=== PATIENT | male | born 1970 | race Caucasian/White ===

== ENCOUNTER 2017-03-31 16:07 | Emergency (ER) | payer SELFPAY ==
[~2017-03-31] VITALS: Ht 175.3 cm; Wt 108.9 kg
[~2017-03-31 16:07] MED LIST: NORPTMEDS CO
[2017-03-31 16:38] VITALS: BP 142/95
== END 2017-03-31 23:31 | disposition left against medical advice (07) ==
LOC: ER 16:07
DX: M79.605 Pain in left leg (principal); Z53.21 Procedure and treatment not carried out due to patient leaving prior to being seen by health care provider

== ENCOUNTER 2017-04-05 15:54 | Emergency (ER) | payer SELFPAY ==
[~2017-04-05] VITALS: Ht 170.2 cm; Wt 113.4 kg
[2017-04-05 16:46] LABS: Basophils # (auto) 0.1 uL; Basophils % (auto) 0.9 % (0.0-2.0); CONDITION Y; Eosinophils # (auto) 0.2 uL; Eosinophils % (auto) 1.7 % (0.0-7.0); Hematocrit 43.3 % (41.0-53.0); Hemoglobin 14.9 g/dL (13.5-17.5); Lymphocytes # (auto) 2.3 uL; Mean Corpuscular Hemoglobin 28.8 pg (28.0-32.0); Mean Corpuscular Hgb Conc. 34.3 g/dL (32.0-36.0); Mean Corpuscular Volume 83.9 fL (80.0-100.0); Monocytes # (auto) 0.7 uL; Monocytes % (auto) 6.1 % (0.0-12.0); Neutrophils # (auto) 7.7 uL; Neutrophils % (auto) 70.3 % (37.0-80.0); Platelet Count (auto) 362 10^3/uL (140-450); Red Cell Distribution Width 13.4 % (11.6-16.0)
[2017-04-05 17:22] LABS: Albumin 3.9 g/dL (3.4-5.0); Alkaline Phosphatase 90 U/L (45-117); Anion Gap 8 (5-15); Aspartate Aminotransferase 21 U/L (15-37); BUN/Creatinine Ratio 15.5; Bilirubin, Total 0.5 mg/dL (0.2-1.0); Blood Urea Nitrogen 17 mg/dL (7-18); Calcium 9.5 mg/dL (8.5-10.1); Carbon Dioxide 23 mmol/L (21-32); Chloride 107 mmol/L (98-107); GFR African American 92 mL/min; GFR Non-African American 76 mL/min; Glucose 118 mg/dL (74-106); Magnesium 2.7 mg/dL (1.6-2.6); Potassium 3.6 mmol/L (3.5-5.1); Sodium 138 mmol/L (136-145); Total Protein 7.9 g/dL (6.4-8.2)
[2017-04-05 19:40] VITALS: BP 137/89
[2017-04-05 19:57] LABS: Urine RBC None Seen /hpf (0 - 3)
[2017-04-05 20:20] LABS: Urine Bilirubin Negative (Negative); Urine Blood Negative /uL (Negative); Urine Color Yellow (Yellow); Urine Glucose Normal (Normal); Urine Ketone Negative (Negative); Urine Mucus FEW (None Seen); Urine Nitrite Negative (Negative); Urine Squamous Epithelial Cell FEW /hpf (<5); Urine Urobilinogen Normal (Negative); Urine pH 5.5 (5.0-8.0)
== END 2017-04-05 20:00 | disposition left against medical advice (07) ==
LOC: ER 16:02
DX: R06.02 Shortness of breath (principal); R51 Headache; R11.0 Nausea; Z53.21 Procedure and treatment not carried out due to patient leaving prior to being seen by health care provider
CPT/HCPCS: 36415; 70450; 71010; 80053; 80307; 81001; 83735; 84484; 85025; 93005

== ENCOUNTER 2023-10-18 15:44 | Inpatient (IN) | payer MEDICAID ==
[~2023-10-18] VITALS: Ht 175.3 cm; Wt 110.0 kg
[2023-10-18 16:40] LABS: Basophils # (auto) 0.1 10 ^3/uL (0-0.2); Basophils % (auto) 0.8 % (0.0-2.0); Eosinophils # (auto) 0.2 10 ^3/uL (0-0.8); Hemoglobin 15.2 g/dL (13.5-17.5); Lymphocytes # (auto) 1.9 10 ^3/uL (0.4-5.4); Lymphocytes % (auto) 22.6 % (10.0-50.0); Mean Corpuscular Hemoglobin 28.6 pg (28.0-32.0); Mean Corpuscular Hgb Conc. 33.7 g/dL (32.0-36.0); Mean Corpuscular Volume 84.8 fL (80.0-100.0); Monocytes # (auto) 0.4 10 ^3/uL (0-1.3); Monocytes % (auto) 4.7 % (0.0-12.0); Neutrophils % (auto) 69.9 % (37.0-80.0); Nucleated Red Blood Cells % 0.1 %; Red Blood Cells 5.31 10^6/uL (4.5-5.90); Red Cell Distribution Width 13.1 % (11.8-14.3); White Blood Cell 8.5 10^3/uL (4.4-10.8)
[2023-10-18 16:56] LABS: Alanine Aminotransferase 35 U/L (7-40); Albumin 4.2 g/dL (3.2-4.8); Alkaline Phosphatase 89 U/L (46-116); Anion Gap 7 (5-15); Aspartate Aminotransferase 23 U/L (13-40); BUN/Creatinine Ratio 10.1 (10.0-20.0); Bilirubin, Total 0.6 mg/dL (0.2-1.0); Blood Urea Nitrogen 12 mg/dL (9-23); Calcium 9.2 mg/dL (8.7-10.4); Carbon Dioxide 30 mmol/L (20-30); Chloride 102 mmol/L (98-107); Glucose 138 mg/dL (74-106); Potassium 4.3 mmol/L (3.5-5.1); Sodium 139 mmol/L (136-145); Total Protein 6.9 g/dL (5.7-8.2)
[2023-10-18 17:02] LABS: INR 1.05 (0.9-1.15); Partial Thromboplastin Time 26.9 SEC (24.5-34.5)
[2023-10-18 17:10] LABS: Blood Alcohol < 3.0 mg/dL (<10)
[2023-10-18] MEDS ORDERED: NITROGLYCERIN 0.4 MG SL TAB SL PRN (19:00)
[2023-10-18] MEDS ORDERED: MORPHINE SULFATE INJ 2 MG/ml SYRG IV PRN (19:00)
[2023-10-18] MEDS ORDERED: ONDANSETRON HCL 4 MG/2 ML VIAL IV PRN (19:00)
[2023-10-18] MEDS ORDERED: ACETAMINOPHEN 325 MG TAB PO PRN (19:00)
[2023-10-18] MEDS ORDERED: DOCUSATE SOD 100 MG CAP PO PRN (19:00)
[2023-10-18] MEDS ORDERED: ALBUTEROL SULF 2.5 MG/0.5ML(0.5%) NEB SOLN NEB PRN (19:15)
[2023-10-18] MEDS ORDERED: IPRATROPIUM BROM 0.5 MG/2.5ML INH SOL NEB PRN (19:15)
[2023-10-18] MEDS: FOLIC ACID 1 MG TAB PO ONE (20:14)
[2023-10-18] MEDS: THIAMINE HCL 100 MG TAB PO ONE (20:14)
[2023-10-18] MEDS: MULTIPLE VITAMIN TAB PO ONE (20:14)
[2023-10-18] MEDS: SODIUM CHLORIDE 0.9% 1,000 ML IV ONE (20:15)
[2023-10-18 22:20] VITALS: BP 123/76; PULSE 103; RESP 16; TEMP 98.7; O2SAT 98
[2023-10-19 00:20] VITALS: PULSE 87; RESP 18; O2SAT 96
[2023-10-19 05:07] LABS: Basophils # (auto) 0.1 10 ^3/uL (0-0.2); Basophils % (auto) 0.7 % (0.0-2.0); Eosinophils # (auto) 0.3 10 ^3/uL (0-0.8); Eosinophils % (auto) 2.7 % (0.0-7.0); Hematocrit 44.1 % (41.0-53.0); Hemoglobin 14.9 g/dL (13.5-17.5); Lymphocytes % (auto) 30.7 % (10.0-50.0); Mean Corpuscular Hemoglobin 28.7 pg (28.0-32.0); Mean Corpuscular Hgb Conc. 33.7 g/dL (32.0-36.0); Mean Corpuscular Volume 85.1 fL (80.0-100.0); Monocytes # (auto) 0.8 10 ^3/uL (0-1.3); Monocytes % (auto) 8.1 % (0.0-12.0); Neutrophils # (auto) 5.7 10 ^3/uL (1.6-8.6); Neutrophils % (auto) 57.8 % (37.0-80.0); Red Blood Cells 5.19 10^6/uL (4.5-5.90); Red Cell Distribution Width 13.2 % (11.8-14.3); White Blood Cell 9.8 10^3/uL (4.4-10.8)
[2023-10-19 05:38] LABS: Alanine Aminotransferase 29 U/L (7-40); Alkaline Phosphatase 80 U/L (46-116); Anion Gap 7 (5-15); Aspartate Aminotransferase 17 U/L (13-40); BUN/Creatinine Ratio 9.2 (10.0-20.0); Blood Urea Nitrogen 10 mg/dL (9-23); Carbon Dioxide 29 mmol/L (20-30); Chloride 104 mmol/L (98-107); Glucose 105 mg/dL (74-106); Potassium 3.7 mmol/L (3.5-5.1); Sodium 140 mmol/L (136-145)
[2023-10-19 05:39] LABS: Bilirubin, Total 0.5 mg/dL (0.2-1.0); Total Protein 6.7 g/dL (5.7-8.2)
[2023-10-19 05:43] LABS: Amphetamine Screen, Urine Pos (NEGATIVE); Benzodiazephine Screen, Urine Neg (NEGATIVE)
[2023-10-19 05:44] LABS: Barbiturate Scree,Urine Neg (NEGATIVE); Cannabinoid Screen, Urine Pos (NEGATIVE); Cocaine Screen, Urine Neg (NEGATIVE); Opiate Scree,Urine Neg (NEGATIVE); Phencyclidine Screen, Urine Neg (NEGATIVE)
[2023-10-19 05:51] LABS: Urine Bacteria NONE SEEN /hpf (None Seen); Urine Blood Negative /uL (Negative); Urine Clarity Clear (Clear); Urine Color Yellow (Yellow); Urine Mucus FEW (None Seen); Urine Protein, UAD TRACE (Negative); Urine Specific Gravity 1.028 (1.001-1.035); Urine Urobilinogen Normal (Negative); Urine WBC 1 /hpf (0 - 3); Urine pH 5.5 (5.0-8.0)
[2023-10-19 05:56] LABS: Triglycerides 74 mg/dL (< 150)
[2023-10-19 05:57] LABS: LDL Cholesterol 81 mg/dL (< 100)
[2023-10-19 05:58] LABS: Cholesterol 144 mg/dL (< 200); HDL Cholesterol 52 mg/dL (40-59)
[2023-10-19 06:07] VITALS: O2SAT 94
[2023-10-19 07:38] VITALS: PULSE 66; RESP 18; O2SAT 95
[2023-10-19] MEDS: MULTIPLE VITAMIN TAB PO SCH (10:29)
[2023-10-19] MEDS: THIAMINE HCL 100 MG TAB PO SCH (10:29)
[2023-10-19] MEDS: FOLIC ACID 1 MG TAB PO SCH (10:29)
[2023-10-19 12:57] VITALS: BP 129/84; PULSE 67; RESP 19; TEMP 97.2; O2SAT 95
== END 2023-10-19 13:10 | disposition home or self-care (01) | DRG 204 ==
LOC: ER 15:44 → TELE-CENTR 19:06 → TELE 19:06 → TELE-CENTR 10-19 12:16
PROVIDERS: ADMIT Internal Medicine Pulmonary Disease; ATTEND Internal Medicine Pulmonary Disease
DX: R55 Syncope and collapse (principal); E66.01 Morbid (severe) obesity due to excess calories; F10.129 Alcohol abuse with intoxication, unspecified; F12.10 Cannabis abuse, uncomplicated; F15.10 Other stimulant abuse, uncomplicated; Z68.35 Body mass index [BMI] 35.0-35.9, adult; Z71.3 Dietary counseling and surveillance
CPT/HCPCS: 36415; 70450; 71045; 80053; 80061; 80307; 80320; 81001; 82962; 83036; 83605; 84443; 84484; 85025; 85379; 85610; 85730; 87040; 93005; 93306; G0378

== ENCOUNTER 2024-11-23 17:39 | Inpatient (IN) | payer MEDICAID, OTHER ==
[~2024-11-23] VITALS: Ht 172.7 cm; Wt 110.9 kg
--- NOTE | 2024-11-23 18:03 | ED.PDOC ---
GI ASSESSMENT HPI Comments 54 y/o M, presents to the ED for CC of abdominal pain. Patient states, that he has been experiencing RUQ abdominal pain that radiates to his back since last night (11/22/24). Patient comments ne onset symptoms of chills which began today (11/23/24). Patient complains of current 6/10 pain. Patient denies tobacco usage, drinks ETOH, and does illicit street drugs. Patient denies dysuria, hematuria, penile discharge, or N/V/D. No other symptoms or modifying factors at this time. Chief Complaint: Abdominal Pain Time Seen by MD: 17:50 Primary Care Provider: NONE Reviewed Notes: Nurses Notes, Medications, Allergies Allergies: Coded Allergies: NO KNOWN ALLERGIES (Unverified , 07/21/13) Home Meds No Active Prescriptions or Reported Meds Information Source: Patient Mode of Arrival: Ambulatory Timing: Days Duration: Since onset Prehospital treatment: None Quality: None Vomitus: None Stool: Impaction Severity: Moderate Recent: None Recent Hx of: None Pain Location: RUQ Modifying Factors: Nothing Associated sign and symptoms: None Past Medical History PAST MEDICAL HISTORY: Kidney Stones Surgical History: Denies all surgeries Family History Family History: Unknown Social History Smoker: Non-Smoker Alcohol: Occasionally Drugs: Marijuana, Methamphetamine Lives In: Home Constitutional: reports: chills; denies: diaphoresis, fatigue, fever, malaise, sweats, weakness, others EENTM: denies: blurred vision, double vision, ear bleeding, ear discharge, ear drainage, ear pain, ear ringing, eye pain, eye redness, hearing loss, mouth pain, mouth swelling, nasal discharge, nose bleeding, nose congestion, nose pain, photophobia, tearing, throat pain, throat swelling, voice changes, others Respiratory: denies: cough, hemoptysis, orthopnea, SOB at rest, shortness of breath, SOB with excertion, stridor, wheezing, others Cardiovascular: denies: chest pain, dizzy spells, diaphoresis, Dyspnea on exertion, edema, irregular heart beat, left arm pain, lightheadedness, palpitations, PND, syncope, others Gastrointestinal: reports: abdominal pain; denies: abdomen distended, blood streaked bowels, constipated, diarrhea, dysphagia, difficulty swallowing, hematemesis, melena, nausea, poor appetite, poor fluid intake, rectal bleeding, rectal pain, vomiting, others Genitourinary: denies: burning, dysuria, flank pain, frequency, hematuria, incontinence, penile discharge, penile sore, pain, testicle pain, testicle swelling, urgency, others Neurological: denies: dizziness, fainting, headache, left sided numbness, left sided weakness, numbness, paresthesia, pre-existing deficit, right sided numbness, right sided weakness, seizure, speech problems, tingling, tremors, weakness, others Musculoskeletal: denies: back pain, gout, joint pain, joint swelling, muscle pain, muscle stiffness, neck pain, others Integumetry: denies: bruises, change in color, change in hair/nails, dryness, laceration, lesions, lumps, rash, wounds, others Allergic/Immunocompromised: denies: Difficulty Healing, Frequent Infections, Hives, Itching, others Hematologic/Lymphatic: denies: anemia, blood clots, easy bleeding, easy bruising, swollen glands, others Endocrine: denies: excessive hunger, excessive sweating, excessive thirst, excessive urination, flushing, intolerance to cold, intolerance to heat, unexplained weight gain, unexplained weight loss, others Psychiatric: denies: anxiety, bipolar disorder, depression, hopeless, panic disorder, schizophrenia, sleepless, suicidal, others All Other Systems: Reviewed and Negative Physical Exam General Appearance: Moderate Distress HEENT: Normal ENT Inspection, Pharynx Normal, TMs Normal Neck: Full Range of Motion, Non-Tender, Normal, Normal Inspection Respiratory: Chest Non-Tender, Lungs Clear, No Accessory Muscle Use, No Respiratory Distress, Normal Breath Sounds Cardiovascular: No Edema, No JVD, No Murmur, No Gallop, Normal Peripheral Pulses, Regular Rate/Rhythm Breast Exam: Deferred Gastrointestinal: Epigastric, No Organomegaly, No Pulsatile Mass, Normal Bowel Sounds, Soft, Tenderness Genitalia: Deferred Pelvic: Deferred Rectal: Deferred Extremities: No calf tenderness, Normal capillary refill, No pedal edema Musculoskeletal : Apperance: Normal 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 Was a procedure done?: No GI differential Dx Differential Diagnosis: Cholangitis, Cholecystitis, Constipation, Gastritis/PUD, Gastroenteritis, Electrolyte Imbalance, Food Poisoning, Bacterial, Viral X-Ray, Labs, Meds, VS Vital Signs Date Time Temp Pulse Resp B/P (MAP) Pulse Ox O2 Delivery O2 Flow Rate FiO2 11/23/24 18:33 102 22 162/91 11/23/24 18:22 102 20 96 Room Air* 0 21 11/23/24 18:20 98.0 101 20 162/91 (114) 98 98.0 11/23/24 17:56 98.0 114 18 132/99 (110) 98 Lab Test 11/23/24 18:20 Range/Units White Blood Count 13.0 H 4.4-10.8 10^3/uL Red Blood Count 5.04 4.5-5.90 10^6/uL Hemoglobin 14.7 13.5-17.5 g/dL Hematocrit 42.4 41.0-53.0 % Mean Corpuscular Volume 84.2 80.0-100.0 fL Mean Corpuscular Hemoglobin 29.1 28.0-32.0 pg Mean Corpuscular Hemoglobin Concent 34.6 32.0-36.0 g/dL Red Cell Distribution Width 13.1 11.8-14.3 % Platelet Count 378 140-450 10^3/uL Mean Platelet Volume 7.2 6.9-10.8 fL Neutrophils (%) (Auto) 73.5 37.0-80.0 % Lymphocytes (%) (Auto) 16.7 10.0-50.0 % Monocytes (%) (Auto) 7.7 0.0-12.0 % Eosinophils (%) (Auto) 1.4 0.0-7.0 % Basophils (%) (Auto) 0.7 0.0-2.0 % Neutrophils # (Auto) 9.6 H 1.6-8.6 10 ^3/uL Lymphocytes # (Auto) 2.2 0.4-5.4 10 ^3/uL Monocytes # (Auto) 1.0 0-1.3 10 ^3/uL Eosinophils # (Auto) 0.2 0-0.8 10 ^3/uL Basophils # (Auto) 0.1 0-0.2 10 ^3/uL Nucleated Red Blood Cells 0.1 % Sodium Level 141 136-145 mmol/L Potassium Level 3.8 3.5-5.1 mmol/L Chloride Level 104 98-107 mmol/L Carbon Dioxide Level 28 20-31 mmol/L Anion Gap 9 5-15 Blood Urea Nitrogen 7 L 9-23 mg/dL Creatinine 0.94 0.700-1.30 mg/dL Glomerular Filtration Rate Calc 95 >90 mL/min BUN/Creatinine Ratio 7.4 L 10.0-20.0 Serum Glucose 109 H 74-106 mg/dL Calcium Level 9.4 8.7-10.4 mg/dL Total Bilirubin 0.5 0.2-1.0 mg/dL Aspartate Amino Transferase (AST) 12 L 13-40 U/L Alanine Aminotransferase (ALT) 26 7-40 U/L Alkaline Phosphatase 98 46-116 U/L Total Protein 7.1 5.7-8.2 g/dL Albumin 4.3 3.2-4.8 g/dL Lipase 58 H 12-53 U/L Current Medications Medications (Trade) Dose Ordered Sig/Kimber Route Start Time Stop Time Status Last Admin Ondansetron HCl (Zofran) 4 mg ONCE ONCE IV 11/23/24 18:00 11/23/24 18:01 DC 11/23/24 18:33 Morphine Sulfate 4 mg ONCE ONCE IV 11/23/24 18:00 11/23/24 18:01 DC 11/23/24 18:33 Pantoprazole Sodium (Protonix) 40 mg ONCE ONCE IV 11/23/24 18:00 11/23/24 18:01 DC 11/23/24 18:33 US GALLBLADDER: FINDINGS: Pancreas: Obscured by artifact from bowel gas. Liver: Measures approximately 17.8 cm in length. Increased parenchymal echogenicity. No discrete hepatic lesions as visualized. The portal vein appears patent. Gallbladder: Gallbladder is contracted. No sizable cholelithiasis. No sonographic macedo's sign elicited. Common bile duct: Nondilated. Right Kidney: Measures 10 cm in length. No hydronephrosis. Right upper quadrant Inferior vena cava: Visualized portions appear grossly patent. IMPRESSION: Hepatomegaly with increased hepatic parenchymal echogenicity. This is most commonly secondary to fatty infiltration, however, other diffusely infiltrative processes are not excluded. Please correlate clinically. ATED BY: JACEK BURCH MD DICTATED DATE/TIME: 11/23/241857 SIGNED BY: JACEK BURCH MD SIGNED DATE/TIME: 11/23/241857 CC: The patient was given morphine 4 mg IV push for the pain The patient was given Zofran 4 mg IV push for the nausea The patient was given Protonix 40 mg IV push Patient was lipase is elevated at 58 The patient's CBC and chemistry panel showed an elevated white blood cell count of 13 At this time, the patient was being admitted to the hospitalist Images Reviewed?: Images reviewed and evaluated by me Time of 1ST Reevaluation: 18:20 Reevaluation 1ST: Unchanged Time of 2ND Reevaluation: 21:20 Reevaluation 2ND: Improved Patient Education/Counseling: Diagnosis, Treatment, Prognosis Family Education/Counseling: No Family Present Departure 1 Departure Time of Disposition: 21:21 Impression: Primary Impression: Intractable abdominal pain Additional Impression: Elevated lipase Disposition: ADMITTED INPATIENT Admit to: Med Surg Condition: Fair e-Prescriptions No Active Prescriptions or Reported Meds Critical Care Note Critical Care Time?: No Stability Stability form required: Yes Unstable for transfer: ED Physician Assesment (Clinical assesment) Heart Score Heart Score: Heart Score Response (Comments) Value History N/A 0 EKG N/A 0 Age N/A 0 Risk Factors N/A 0 Troponin N/A 0 Total 0 I personally scribed for NEPTALI MURILLO MD ([email or web address]) on 11/23/24 at 18:03. Electronically submitted by Jaqui Cortez ([email or web address]). I personally scribed for NEPTALI MURILLO MD ([email or web address]) on 11/23/24 at 19:55. Electronically submitted by Jaqui Cortez ([email or web address]). NEPTALI MURILLO MD Nov 23, 2024 18:03
[2024-11-23 18:22] VITALS: PULSE 102; RESP 20; O2SAT 96
[2024-11-23] MEDS: MORPHINE SULFATE 4 MG/ML SYR/VIAL IV ONE (18:33)
[2024-11-23] MEDS: ONDANSETRON HCL 4 MG/2 ML VIAL IV ONE (18:33)
[2024-11-23] MEDS: PANTOPRAZOLE 40 MG/10 ML VIAL INJ IV ONE (18:33)
[2024-11-23 18:51] LABS: Basophils # (auto) 0.1 10 ^3/uL (0-0.2); Basophils % (auto) 0.7 % (0.0-2.0); Eosinophils # (auto) 0.2 10 ^3/uL (0-0.8); Eosinophils % (auto) 1.4 % (0.0-7.0); Hematocrit 42.4 % (41.0-53.0); Hemoglobin 14.7 g/dL (13.5-17.5); Lymphocytes # (auto) 2.2 10 ^3/uL (0.4-5.4); Lymphocytes % (auto) 16.7 % (10.0-50.0); Mean Corpuscular Hemoglobin 29.1 pg (28.0-32.0); Mean Corpuscular Hgb Conc. 34.6 g/dL (32.0-36.0); Mean Corpuscular Volume 84.2 fL (80.0-100.0); Monocytes % (auto) 7.7 % (0.0-12.0); Neutrophils # (auto) 9.6 10 ^3/uL (1.6-8.6); Neutrophils % (auto) 73.5 % (37.0-80.0); Nucleated Red Blood Cells % 0.1 %; Platelet Count (auto) 378 10^3/uL (140-450); Red Blood Cells 5.04 10^6/uL (4.5-5.90); Red Cell Distribution Width 13.1 % (11.8-14.3)
--- NOTE | 2024-11-23 19:00 | DVH ---
RIGHT UPPER QUADRANT ABDOMINAL ULTRASOUND CLINICAL HISTORY: pain COMPARISON: None TECHNIQUE: Grayscale and color Doppler ultrasound imaging of the right upper quadrant is performed. FINDINGS: Pancreas: Obscured by artifact from bowel gas. Liver: Measures approximately 17.8 cm in length. Increased parenchymal echogenicity. No discrete hep atic lesions as visualized. The portal vein appears patent. Gallbladder: Gallbladder is contracted. No sizable cholelithiasis. No sonographic macedo's sign elici ottoniel. Common bile duct: Nondilated. Right Kidney: Measures 10 cm in length. No hydronephrosis. Right upper quadrant Inferior vena cava: Visualized portions appear grossly patent. IMPRESSION: Hepatomegaly with increased hepatic parenchymal echogenicity. This is most commonly secondary to fat ty infiltration, however, other diffusely infiltrative processes are not excluded. Please correlate lon carrizales.
[2024-11-23 19:08] LABS: Alanine Aminotransferase 26 U/L (7-40); Albumin 4.3 g/dL (3.2-4.8); Alkaline Phosphatase 98 U/L (46-116); Anion Gap 9 (5-15); BUN/Creatinine Ratio 7.4 (10.0-20.0); Bilirubin, Total 0.5 mg/dL (0.2-1.0); Calcium 9.4 mg/dL (8.7-10.4); Carbon Dioxide 28 mmol/L (20-31); Chloride 104 mmol/L (98-107); Potassium 3.8 mmol/L (3.5-5.1); Sodium 141 mmol/L (136-145); Total Protein 7.1 g/dL (5.7-8.2)
[2024-11-23 19:14] LABS: Aspartate Aminotransferase 12 U/L (13-40); Blood Urea Nitrogen 7 mg/dL (9-23); Glucose 109 mg/dL (74-106); Lipase 58 U/L (12-53)
--- NOTE | 2024-11-23 23:04 | DVH ---
Exam: CT AB PEL WO CON-NO ORAL OR IV History: abdominal pain r/o intra-abdominal infection Comparison Study: None Contrast: None TECHNIQUE: Multidetector CT of abdomen and pelvis without IV contrast. Radiation Dose Information: CT Dose: CTDI volume is 24.55 mGy. Dose-length product is 1461.43 mGy*cm FINDINGS: Lung bases are clear. Heart size is normal. Lower esophagus is normal. Spleen, gallbladder, liver, adrenals, kidneys are unremarkable. There may be acute pancreatitis invo lving the head of the pancreas there is fluid around the head of the pancreas. The appendix is normal there are central gland calcifications in the prostate which is normal size bl adder is unremarkable there are few diverticuli in the sigmoid and descending colon but no diverticul itis caliber of the colon is normal. Caliber of the small bowel is normal. Bones appear to be within normal limits there is disc disease in the lower lumbosacral spine. There IMPRESSION: 1. There is evidence for acute pancreatitis head of the pancreas.
[2024-11-23] MEDS ORDERED: ONDANSETRON HCL 4 MG/2 ML VIAL IV PRN (23:45)
--- NOTE | 2024-11-23 23:46 | DVHHPRES ---
History of Present Illness Resident Creating Document: MILAGROS MENDES Reason for Visit: right side abdominal pain History of Present Illness Patient is a 54 year old male with no known past medical history presenting to the ED with chief complaints of right sided abdominal pain of one day's duration . Per the patient, the pain started yesterday morning. It was gnawing, very uncomfortable involve half side of his right abdomen with radiation to his back. Pain was not associated with food. It had no aggravating or relieving factors. Patient denied any recent history of binge alcohol consumption,hyperlipidemia, trauma, infection and not on may medications. He admits to substance abuse. He has leukocytosis otherwise unremarkable. CT abdomen revealed acute pancreatitis. 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 Dyspnea, Edema, Lt Headedness, Other Gastrointestinal: Abdominal Pain; No: Nausea, Vomiting, Diarrhea, Constipation, Melena, Hematochezia, Other Genitourinary: No Dysuria, No Frequency, No Incontinence, No Hematuria, No Retention, No Other Musculoskeletal: No: other, neck pain, shoulder pain, arm pain, back pain, hand pain, leg pain, foot pain Skin: No: Rash, Lesions, Jaundice, Bruising, Other Neurological: No: Weakness, Numbness, Incoordination, Change in speech, Confusion, Seizures, Other Allergies: Coded Allergies: NO KNOWN ALLERGIES (Unverified , 07/21/13) Medications Current Medications Medications Dose Ordered Sig/Kimber Route Start Time Stop Time Status Last Admin Dose Admin Enoxaparin Sodium 40 mg DAILY SC 11/24/24 10:00 Morphine Sulfate 2 mg Q4HPRN PRN IV 11/23/24 23:45 Lactated Ringer's 1,000 ml @ 125 mls/hr Q8H IV 11/23/24 23:45 Exam Vital Signs Vital Signs Date Time Temp Pulse Resp B/P (MAP) Pulse Ox O2 Delivery O2 Flow Rate FiO2 11/23/24 18:33 102 22 162/91 11/23/24 18:22 96 Room Air* 0 21 11/23/24 18:20 98.0 98.0 Exam General Appearance: Alert, Oriented X3, Cooperative, mild acute distress HEENT: Atraumatic, PERRLA, EOMI, Mucous membrane moist/pink Respiratory: Clear to auscultation, Normal air movement Cardiovascular: Regular rate, Normal S1, Normal S2, No murmurs, no chest wall tenderness Abdominal: distention, tenderness, bowel sounds present, no scars noted Extremities: No clubbing, No cyanosis, No edema, Normal pulses, No tenderness/swelling Skin: No rashes, No breakdown, No significant lesion Neuro: Normal gait, Normal speech, Strength at 5/5 X4 ext, Normal tone, Sensation intact, Cranial nerves 3-12 NL, Reflexes 2+ Psych/Mental Status: Mental status NL, Mood NL General Appearance: Alert, Oriented X3, Cooperative, No acute distress Labs/Xrays Labs Test 11/23/24 22:20 11/23/24 18:20 Range/Units Lactic Acid Level 1.0 0.4-2.0 mmol/L White Blood Count 13.0 H 4.4-10.8 10^3/uL Red Blood Count 5.04 4.5-5.90 10^6/uL Hemoglobin 14.7 13.5-17.5 g/dL Hematocrit 42.4 41.0-53.0 % Mean Corpuscular Volume 84.2 80.0-100.0 fL Mean Corpuscular Hemoglobin 29.1 28.0-32.0 pg Mean Corpuscular Hemoglobin Concent 34.6 32.0-36.0 g/dL Red Cell Distribution Width 13.1 11.8-14.3 % Platelet Count 378 140-450 10^3/uL Mean Platelet Volume 7.2 6.9-10.8 fL Neutrophils (%) (Auto) 73.5 37.0-80.0 % Lymphocytes (%) (Auto) 16.7 10.0-50.0 % Monocytes (%) (Auto) 7.7 0.0-12.0 % Eosinophils (%) (Auto) 1.4 0.0-7.0 % Basophils (%) (Auto) 0.7 0.0-2.0 % Neutrophils # (Auto) 9.6 H 1.6-8.6 10 ^3/uL Lymphocytes # (Auto) 2.2 0.4-5.4 10 ^3/uL Monocytes # (Auto) 1.0 0-1.3 10 ^3/uL Eosinophils # (Auto) 0.2 0-0.8 10 ^3/uL Basophils # (Auto) 0.1 0-0.2 10 ^3/uL Nucleated Red Blood Cells 0.1 % Sodium Level 141 136-145 mmol/L Potassium Level 3.8 3.5-5.1 mmol/L Chloride Level 104 98-107 mmol/L Carbon Dioxide Level 28 20-31 mmol/L Anion Gap 9 5-15 Blood Urea Nitrogen 7 L 9-23 mg/dL Creatinine 0.94 0.700-1.30 mg/dL Glomerular Filtration Rate Calc 95 >90 mL/min BUN/Creatinine Ratio 7.4 L 10.0-20.0 Serum Glucose 109 H 74-106 mg/dL Calcium Level 9.4 8.7-10.4 mg/dL Total Bilirubin 0.5 0.2-1.0 mg/dL Aspartate Amino Transferase (AST) 12 L 13-40 U/L Alanine Aminotransferase (ALT) 26 7-40 U/L Alkaline Phosphatase 98 46-116 U/L Total Protein 7.1 5.7-8.2 g/dL Albumin 4.3 3.2-4.8 g/dL Lipase 58 H 12-53 U/L Assessment/Plan Assessment/Plan Assessment Acute pancreatitis SIRS leukocytosis morbid obesity, BMI 37.2 Polysubstance abuse ( UDS positive for amphetamine and cannabinoids) Prediabetes, A1c 5.8 Plan IV Lactated Ringer's Morphine 2mg q4hr prn NPO Repeat AM labs A1c pending lipid panel-->pending alcohol level--> pending Counselled patient substance abuse cessation counselled patient on weight loss and healthy diet Goal of care discussed for more than 30 minutes, full code Case and plan discussed with Dr. Ma Plan discussed with: Patient My Orders Orders - MILAGROS MENDES Procedure Category Date Status Time Admit ADMIT 11/23/24 Transmitted 23:33 Enoxaparin Sodium PHA 11/24/24 In Process (Lovenox) 10:00 Npo (Nothing By DIET 11/24/24 Transmitted Mouth) Diet Breakfast Morphine Sulfate PHA 11/23/24 In Process Injection 23:45 Lactated Ringer's PHA 11/23/24 In Process 23:45 Date of Service: Nov 23, 2024 Billing Provider: SANTIAGO MA MD Common Visit Codes: [id number] INP/OBS CARE (HIGH) MILAGROS MENDES Nov 23, 2024 23:46 SANTIAGO MA MD Nov 24, 2024 11:29
[2024-11-24 00:15] LABS: Triglycerides 112 mg/dL (< 150)
[2024-11-24 00:16] LABS: LDL Cholesterol 63 mg/dL (< 100)
[2024-11-24 00:17] LABS: Amylase 77 U/L (30-118); Cholesterol 124 mg/dL (< 200); HDL Cholesterol 45 mg/dL (40-59)
[2024-11-24 00:24] LABS: Blood Alcohol < 3.0 mg/dL (<10)
[2024-11-24 01:07] VITALS: BP 139/69; PULSE 93; PULSE 94; RESP 20; TEMP 98; O2SAT 96
[2024-11-24] MEDS: LACTATED RINGER'S 1,000 ML IV SCH (01:17)
[2024-11-24] MEDS: MORPHINE SULFATE INJ 2 MG/ml SYRG IV PRN (02:31)
[2024-11-24 05:21] LABS: Urine Bacteria None Seen /hpf (None Seen)
[2024-11-24 05:30] LABS: Urine Blood Negative /uL (Negative); Urine Clarity Clear (Clear); Urine Color Light-Yellow (Yellow); Urine Protein, UAD Negative (Negative); Urine Squamous Epithelial Cell None Seen /hpf (<5); Urine Urobilinogen Normal (Negative); Urine WBC < 1 /HPF (0-3)
[2024-11-24 05:37] LABS: Basophils # (auto) 0.1 10 ^3/uL (0-0.2); Basophils % (auto) 0.6 % (0.0-2.0); Eosinophils # (auto) 0.2 10 ^3/uL (0-0.8); Eosinophils % (auto) 1.5 % (0.0-7.0); Hematocrit 41.2 % (41.0-53.0); Hemoglobin 14.2 g/dL (13.5-17.5); Lymphocytes # (auto) 2.7 10 ^3/uL (0.4-5.4); Lymphocytes % (auto) 19.6 % (10.0-50.0); Mean Corpuscular Hemoglobin 28.6 pg (28.0-32.0); Mean Corpuscular Hgb Conc. 34.6 g/dL (32.0-36.0); Mean Corpuscular Volume 82.8 fL (80.0-100.0); Monocytes # (auto) 0.8 10 ^3/uL (0-1.3); Neutrophils # (auto) 9.8 10 ^3/uL (1.6-8.6); Neutrophils % (auto) 72.3 % (37.0-80.0); Nucleated Red Blood Cells % 0.1 %; Platelet Count (auto) 358 10^3/uL (140-450); Red Blood Cells 4.98 10^6/uL (4.5-5.90); Red Cell Distribution Width 13.1 % (11.8-14.3); White Blood Cell 13.6 10^3/uL (4.4-10.8)
[2024-11-24 05:42] LABS: Cannabinoid Screen, Urine Pos (NEGATIVE); Opiate Scree,Urine Pos (NEGATIVE)
[2024-11-24 05:49] LABS: Amphetamine Screen, Urine Pos (NEGATIVE); Barbiturate Scree,Urine Neg (NEGATIVE); Benzodiazephine Screen, Urine Neg (NEGATIVE); Cocaine Screen, Urine Neg (NEGATIVE); Phencyclidine Screen, Urine Neg (NEGATIVE)
[2024-11-24 05:51] LABS: Anion Gap 8 (5-15); Carbon Dioxide 27 mmol/L (20-31); Chloride 102 mmol/L (98-107); Potassium 3.7 mmol/L (3.5-5.1); Sodium 137 mmol/L (136-145)
[2024-11-24 05:52] LABS: Calcium 9.5 mg/dL (8.7-10.4)
[2024-11-24 05:57] LABS: BUN/Creatinine Ratio 7.6 (10.0-20.0); Lipase 52 U/L (12-53)
[2024-11-24 06:02] LABS: Blood Urea Nitrogen 7 mg/dL (9-23); Glucose 116 mg/dL (74-106)
[2024-11-24] MEDS: ENOXAPARIN SOD 40 MG/0.4 ML SYRINGE SC SCH (07:51)
[2024-11-24] MEDS: PANTOPRAZOLE 40 MG/10 ML VIAL INJ IV SCH (07:51)
[2024-11-24 08:00] VITALS: BP 156/71; PULSE 100; RESP 18; TEMP 97.9; O2SAT 97
--- NOTE | 2024-11-24 08:42 | DVH ---
EXAM: XY CHEST PORTABLE Indication: pain, ro pna Technique: Single frontal view of the chest was obtained Comparison: XY CHEST PORTABLE on DOS: 10/18/23 FINDINGS: Lines and Tubes: None Lungs: No focal consolidation. Pleura: No effusion. No pneumothorax. Cardiomediastinal contours: Unremarkable Bones: No acute osseous abnormality. IMPRESSION: No acute cardiopulmonary disease.
[2024-11-24 10:39] LABS: Hepatitis B Surface Antigen Negative (Negative); Hepatitis C Antibody Negative (Negative)
[2024-11-24 10:40] LABS: Hepatitis A Ab IgM Negative; Hepatitis B Core IgM Negative (Negative); Hepatitis B Surface Antigen Negative (Negative); Hepatitis C Antibody Negative (Negative)
[2024-11-24] MEDS ORDERED: ACETAMINOPHEN 325 MG TAB PO PRN (11:00)
[2024-11-24 12:32] VITALS: BP 143/107; PULSE 88; RESP 18; TEMP 98.2; O2SAT 96
[2024-11-24 15:32] VITALS: BP 142/76; PULSE 78; RESP 18; TEMP 98.7; O2SAT 98
[2024-11-24 15:50] LABS: Basophils # (auto) 0.1 10 ^3/uL (0-0.2); Basophils % (auto) 1.1 % (0.0-2.0); Eosinophils # (auto) 0.2 10 ^3/uL (0-0.8); Eosinophils % (auto) 1.9 % (0.0-7.0); Hematocrit 43.1 % (41.0-53.0); Hemoglobin 14.6 g/dL (13.5-17.5); Lymphocytes # (auto) 2.4 10 ^3/uL (0.4-5.4); Lymphocytes % (auto) 22.8 % (10.0-50.0); Mean Corpuscular Hemoglobin 28.5 pg (28.0-32.0); Mean Corpuscular Hgb Conc. 33.9 g/dL (32.0-36.0); Monocytes # (auto) 0.8 10 ^3/uL (0-1.3); Monocytes % (auto) 7.3 % (0.0-12.0); Neutrophils # (auto) 7.1 10 ^3/uL (1.6-8.6); Neutrophils % (auto) 66.9 % (37.0-80.0); Platelet Count (auto) 364 10^3/uL (140-450); Red Blood Cells 5.13 10^6/uL (4.5-5.90); Red Cell Distribution Width 13.3 % (11.8-14.3); White Blood Cell 10.6 10^3/uL (4.4-10.8)
--- NOTE | 2024-11-24 17:48 | DVHDSRES ---
Discharge Summary Date of Admission Resident Creating Document: HECTOR STEPHEN RESIDENT Nov 23, 2024 at 23:33 Date of Discharge: Nov 24, 2024 Admitting Diagnosis Acute abdominal pain Labs/Diagnostic Data: Laboratory Results Test 11/24/24 15:30 11/24/24 05:00 11/24/24 04:49 11/23/24 22:20 White Blood Count 10.6 10^3/uL (4.4-10.8) Red Blood Count 5.13 10^6/uL (4.5-5.90) Hemoglobin 14.6 g/dL (13.5-17.5) Hematocrit 43.1 % (41.0-53.0) Mean Corpuscular Volume 84.0 fL (80.0-100.0) Mean Corpuscular Hemoglobin 28.5 pg (28.0-32.0) Mean Corpuscular Hemoglobin Concent 33.9 g/dL (32.0-36.0) Red Cell Distribution Width 13.3 % (11.8-14.3) Platelet Count 364 10^3/uL (140-450) Mean Platelet Volume 7.2 fL (6.9-10.8) Neutrophils (%) (Auto) 66.9 % (37.0-80.0) Lymphocytes (%) (Auto) 22.8 % (10.0-50.0) Monocytes (%) (Auto) 7.3 % (0.0-12.0) Eosinophils (%) (Auto) 1.9 % (0.0-7.0) Basophils (%) (Auto) 1.1 % (0.0-2.0) Neutrophils # (Auto) 7.1 10 ^3/uL (1.6-8.6) Lymphocytes # (Auto) 2.4 10 ^3/uL (0.4-5.4) Monocytes # (Auto) 0.8 10 ^3/uL (0-1.3) Eosinophils # (Auto) 0.2 10 ^3/uL (0-0.8) Basophils # (Auto) 0.1 10 ^3/uL (0-0.2) Nucleated Red Blood Cells 0.0 % Urine Color Light-yellow (Yellow) Urine Clarity Clear (Clear) Urine pH 6.0 (5.0-9.0) Urine Specific [place] 1.010 (1.001-1.035) Urine Protein Negative (Negative) Urine Ketones Negative (Negative) Urine Blood Negative /uL (Negative) Urine Nitrite Negative (Negative) Urine Bilirubin Negative (Negative) Urine Urobilinogen Normal mg/dL (Negative) Urine Leukocyte Esterase Negative /uL (Negative) Urine RBC 1 /hpf (0 - 3) Urine Microscopic WBC < 1 /HPF (0-3) Urine Squamous Epithelial Cells None seen /hpf (<5) Urine Bacteria None seen /hpf (None Seen) Urine Glucose Normal mg/dL (Normal) Urine Opiates Screen Pos (NEGATIVE) Urine Fentanyl Screen Neg (NEGATIVE) Urine Barbiturates Screen Neg (NEGATIVE) Urine Phencyclidine Screen Neg (NEGATIVE) Urine Amphetamines Screen Pos (NEGATIVE) Urine Benzodiazepines Screen Neg (NEGATIVE) Urine Cocaine Screen Neg (NEGATIVE) Urine Cannabinoids Screen Pos (NEGATIVE) Sodium Level 137 mmol/L (136-145) Potassium Level 3.7 mmol/L (3.5-5.1) Chloride Level 102 mmol/L (98-107) Carbon Dioxide Level 27 mmol/L (20-31) Anion Gap 8 (5-15) Blood Urea Nitrogen 7 mg/dL (9-23) Creatinine 0.92 mg/dL (0.700-1.30) Glomerular Filtration Rate Calc 98 mL/min (>90) BUN/Creatinine Ratio 7.6 (10.0-20.0) Serum Glucose 116 mg/dL (74-106) Calcium Level 9.5 mg/dL (8.7-10.4) Lipase 52 U/L (12-53) Hepatitis A IgM Antibody Negative Hepatitis B Surface Antigen Negative (Negative) Hepatitis B Core IgM Antibody Negative (Negative) Hepatitis C Antibody Negative (Negative) Lactic Acid Level 1.0 mmol/L (0.4-2.0) Test 11/23/24 18:21 11/23/24 18:20 Triglycerides Level 112 mg/dL (< 150) Cholesterol Level 124 mg/dL (< 200) LDL Cholesterol 63 mg/dL (< 100) HDL Cholesterol 45 mg/dL (40-59) Amylase Level 77 U/L (30-118) Plasma/Serum Blood Alcohol < 3.0 mg/dL (<10) Hemoglobin A1c 5.8 % A1C (<5.7) Total Bilirubin 0.5 mg/dL (0.2-1.0) Aspartate Amino Transferase (AST) 12 U/L (13-40) Alanine Aminotransferase (ALT) 26 U/L (7-40) Alkaline Phosphatase 98 U/L (46-116) Total Protein 7.1 g/dL (5.7-8.2) Albumin 4.3 g/dL (3.2-4.8) Other Laboratory Tests 11/24/24 15:30 11/24/24 04:49 Brief Hx & Hospital Course: HPI: Patient is a 54 year old male with no known past medical history presenting to the ED with chief complaints of right sided abdominal pain of one day's duration. Per the patient, the pain started yesterday morning. It was gnawing, very uncomfortable involve half side of his right abdomen with radiation to his back. Pain was not associated with food. It had no aggravating or relieving factors. Patient denied any recent history of binge alcohol consumption,hyperlipidemia, trauma, infection and not on may medications. He admits to substance abuse. Hospital course Patient was examined at bedside, initially white blood cell count normalizes until 10.6, regarding the lipase was on admission slightly elevated 58, but the diagnosis was confirmed with the abdominal CT that showed evidence for acute pancreatitis in the head of the pancreas for which the patient was given fluids and morphine for pain control, patient was recommended to improve his lifestyle and dietary habits. Patient was started on clear liquid diet and tolerates well for which the diet was advanced and the patient was recommended to continue advancing diet progressively, vital signs were normal and patient was recommended to follow up with the primary care doctor within 2 weeks. Disposition Discharge to home. Condition at Discharge: Fair Final Diagnosis/Problems List Acute abdominal pain due to Acute pancreatitis SIRS leukocytosis morbid obesity, BMI 37.2 Polysubstance abuse ( UDS positive for amphetamine and cannabinoids) Prediabetes, A1c 5.8 Discharge Disposition: Home SNF Discharge Will this Physician continue t: No Discharge Instruct/Medications Diet: Regular Activity: No Restrictions, As Tolerated Follow Up/Referral: follow up with pcp within 2 weeks Medications: no medications Discharge Statement: "Patient was advised to return to the ER or call 911 if any headaches, dizziness, shortness of breath, chest pain, abdominal pain, bleeding, fevers, or worsening of medical condition. Patient was counseled about treatment plan, medications, possible side effects, patientverbalized understanding. All questions were answered to the best of my ability. This discharge took greater then 30 minutes in planning, reviewing documentation, counseling the patient, and discussing with other team members." ASSESSMENT ASSESSMENT Assessment acute pancreatitis Date of Service: Nov 24, 2024 Billing Provider: TRINA SAMUELS MD Common Visit Codes: [id number] DISCH DAY >30min HECTOR STEPHEN RESIDENT Nov 24, 2024 17:48 TRINA SAMUELS MD Nov 28, 2024 16:09
== END 2024-11-24 15:55 | disposition home or self-care (01) | DRG 282 ==
LOC: ER 17:39 → OVERFLOW 23:33
PROVIDERS: ATTEND Emergency Medicine
DX: K85.90 Acute pancreatitis without necrosis or infection, unspecified (principal); R65.10 Systemic inflammatory response syndrome (SIRS) of non-infectious origin without acute organ dysfunction; E66.01 Morbid (severe) obesity due to excess calories; F15.10 Other stimulant abuse, uncomplicated; F12.10 Cannabis abuse, uncomplicated; R73.03 Prediabetes; Z87.442 Personal history of urinary calculi; Z68.37 Body mass index [BMI] 37.0-37.9, adult; Z79.899 Other long term (current) drug therapy
CPT/HCPCS: 36415; 71045; 74176; 76705; 80048; 80053; 80061; 80074; 80307; 80320; 81001; 82150; 83036; 83605; 83690; 85025; 86803; 87340; 96374; 96375; G0378; J2405; J2470

== ENCOUNTER 2025-03-17 07:55 | Emergency (ER) | payer OTHER ==
[~2025-03-17] VITALS: Ht 177.8 cm; Wt 113.4 kg
[2025-03-17 08:16] VITALS: PULSE 68; RESP 20; O2SAT 95
[2025-03-17] MEDS: SODIUM CHLORIDE 0.9% 1,000 ML IVB ONE (08:41)
--- NOTE | 2025-03-17 08:48 | ED.PDOC ---
Altered Mental Status HPI Comments 54 year old male was BIBA for the c/c of ALOC. Per EMS pts roommate heard a scream from pts room and when then entered pts room he had blood near his mouth. EMS also states pt was initially difficult to arouse. Pt presents A&Ox4. Pt does admit to Meth use 2x days ago. No other associated symptoms, modifiers, recent injuries or sick contacts present at this time. Chief Complaint: ALOC Time Seen by MD: 08:44 Primary Care Provider: UNKNOWN Reviewed Notes: Nurses Notes, Tube Coater Notes, Medications, Allergies Allergies: Coded Allergies: NO KNOWN ALLERGIES (Unverified , 07/21/13) Home Meds No Active Prescriptions or Reported Meds Information Source: Patient, Emergency Med Personnel Mode of Arrival: EMS Severity: Moderate Timing: Hours Duration: Since onset, Hours Prehospital treatment: None Quality: Decreased Alertness, Confusion Recent: Medication/Drug Abuse History of: None Associated Signs and Symptoms: None Past Medical History PAST MEDICAL HISTORY: Kidney Stones Surgical History: Denies all surgeries Family History Family History: Unknown Social History Smoker: Non-Smoker Alcohol: Occasionally Drugs: Marijuana, Methamphetamine Lives In: Home Constitutional: denies: chills, diaphoresis, fatigue, fever, malaise, sweats, weakness, others EENTM: denies: blurred vision, double vision, ear bleeding, ear discharge, ear drainage, ear pain, ear ringing, eye pain, eye redness, hearing loss, mouth pain, mouth swelling, nasal discharge, nose bleeding, nose congestion, nose pain, photophobia, tearing, throat pain, throat swelling, voice changes, others Respiratory: denies: cough, hemoptysis, orthopnea, SOB at rest, shortness of breath, SOB with excertion, stridor, wheezing, others Cardiovascular: denies: chest pain, dizzy spells, diaphoresis, Dyspnea on exertion, edema, irregular heart beat, left arm pain, lightheadedness, palpitations, PND, syncope, others Gastrointestinal: denies: abdomen distended, abdominal pain, blood streaked bowels, constipated, diarrhea, dysphagia, difficulty swallowing, hematemesis, melena, nausea, poor appetite, poor fluid intake, rectal bleeding, rectal pain, vomiting, others Genitourinary: denies: burning, dysuria, flank pain, frequency, hematuria, incontinence, penile discharge, penile sore, pain, testicle pain, testicle swelling, urgency, others Neurological: denies: dizziness, fainting, headache, left sided numbness, left sided weakness, numbness, paresthesia, pre-existing deficit, right sided numbness, right sided weakness, seizure, speech problems, tingling, tremors, weakness, others Musculoskeletal: denies: back pain, gout, joint pain, joint swelling, muscle pain, muscle stiffness, neck pain, others Integumetry: denies: bruises, change in color, change in hair/nails, dryness, laceration, lesions, lumps, rash, wounds, others Allergic/Immunocompromised: denies: Difficulty Healing, Frequent Infections, Hives, Itching, others Hematologic/Lymphatic: denies: anemia, blood clots, easy bleeding, easy bruising, swollen glands, others Endocrine: denies: excessive hunger, excessive sweating, excessive thirst, excessive urination, flushing, intolerance to cold, intolerance to heat, unexplained weight gain, unexplained weight loss, others Psychiatric: denies: anxiety, bipolar disorder, depression, hopeless, panic disorder, schizophrenia, sleepless, suicidal, others All Other Systems: Reviewed and Negative Physical Exam General Appearance: Moderate Distress, Normal, Obese HEENT: Normal ENT Inspection, Pharynx Normal, TMs Normal Neck: Full Range of Motion, Non-Tender, Normal, Normal Inspection Respiratory: Chest Non-Tender, Lungs Clear, No Accessory Muscle Use, No Respiratory Distress, Normal Breath Sounds Cardiovascular: No Edema, No JVD, No Murmur, No Gallop, Normal Peripheral Pulses, Regular Rate/Rhythm Breast Exam: Deferred Gastrointestinal: No Organomegaly, Non Tender, No Pulsatile Mass, Normal Bowel Sounds, Soft Genitalia: Deferred Pelvic: Deferred Rectal: Deferred Extremities: No calf tenderness, Normal capillary refill, Normal inspection, Normal range of motion, Non-tender, No pedal edema Musculoskeletal : Apperance: Normal Neurologic: Disoriented, No Motor Deficits, No Sensory Deficits Cerebellar Function: NOT DONE Reflexes: NOT DONE Skin: Dry, Normal Color, Warm Peripheral Pulses: 3+ Radial (R), 3+ Radial (L) Lymphatic: No Adenopathy Was a procedure done? Was a procedure done?: No Differential Diagnosis (ALOC) Differential Diagnosis: Dehydration, Hypoglycemia, Seizure, Closed Head Injury, CVA, Drug Overdose, ETOH Intoxication X-Ray, Labs, Meds, VS Vital Signs Date Time Temp Pulse Resp B/P (MAP) Pulse Ox O2 Delivery O2 Flow Rate FiO2 03/17/25 14:00 65 22 142/73 (96) 98 03/17/25 12:00 61 03/17/25 12:00 97.8 63 14 127/61 (83) 98 97.8 03/17/25 10:00 63 18 124/75 (91) 97 03/17/25 08:16 97.6 77 20 126/69 (88) 96 97.6 03/17/25 08:16 68 20 95 Nasal Cannula* 2 28 03/17/25 07:59 98.9 70 14 138/90 (106) 94 98.9 Lab Test 03/17/25 12:55 03/17/25 08:43 Range/Units Urine Opiates Screen Neg NEGATIVE Urine Fentanyl Screen Neg NEGATIVE Urine Barbiturates Screen Neg NEGATIVE Urine Phencyclidine Screen Neg NEGATIVE Urine Amphetamines Screen Pos NEGATIVE Urine Benzodiazepines Screen Neg NEGATIVE Urine Cocaine Screen Neg NEGATIVE Urine Cannabinoids Screen Pos NEGATIVE White Blood Count 6.8 4.4-10.8 10^3/uL Red Blood Count 5.34 4.5-5.90 10^6/uL Hemoglobin 15.2 13.5-17.5 g/dL Hematocrit 44.5 41.0-53.0 % Mean Corpuscular Volume 83.4 80.0-100.0 fL Mean Corpuscular Hemoglobin 28.5 28.0-32.0 pg Mean Corpuscular Hemoglobin Concent 34.2 32.0-36.0 g/dL Red Cell Distribution Width 14.4 H 11.8-14.3 % Platelet Count 263 140-450 10^3/uL Mean Platelet Volume 7.4 6.9-10.8 fL Neutrophils (%) (Auto) 65.0 37.0-80.0 % Lymphocytes (%) (Auto) 23.5 10.0-50.0 % Monocytes (%) (Auto) 7.3 0.0-12.0 % Eosinophils (%) (Auto) 3.2 0.0-7.0 % Basophils (%) (Auto) 1.0 0.0-2.0 % Neutrophils # (Auto) 4.4 1.6-8.6 10 ^3/uL Lymphocytes # (Auto) 1.6 0.4-5.4 10 ^3/uL Monocytes # (Auto) 0.5 0-1.3 10 ^3/uL Eosinophils # (Auto) 0.2 0-0.8 10 ^3/uL Basophils # (Auto) 0.1 0-0.2 10 ^3/uL Nucleated Red Blood Cells 0.0 % Sodium Level 142 136-145 mmol/L Potassium Level 4.1 3.5-5.1 mmol/L Chloride Level 106 98-107 mmol/L Carbon Dioxide Level 27 20-31 mmol/L Anion Gap 9 5-15 Blood Urea Nitrogen 16 9-23 mg/dL Creatinine 1.07 0.700-1.30 mg/dL Glomerular Filtration Rate Calc 81 >90 mL/min BUN/Creatinine Ratio 15.0 10.0-20.0 Serum Glucose 127 H 74-106 mg/dL Calcium Level 9.6 8.7-10.4 mg/dL Plasma/Serum Blood Alcohol < 3.0 <10 mg/dL Current Medications Medications (Trade) Dose Ordered Sig/Kimber Route Start Time Stop Time Status Last Admin Sodium Chloride 1,000 ml @ 1,000 mls/hr Q1H ONCE IVB 03/17/25 08:45 03/17/25 09:44 DC 03/17/25 08:41 Sodium Chloride 1,000 ml @ 150 mls/hr Q6H40M ONCE IV 03/17/25 08:45 03/17/25 15:24 03/17/25 09:25 Patient slightly disoriented. Vitals stable. Meth use. Establish intravenous access. Was given fluids. He was placed on oxygen for low saturation. He is answering questions. Unknown how he got here. Possible pneumonitis pain Uses marijuana methamphetamine. Was given prescription of amoxicillin. CT of the head was not done because there was no sign of any fall injury. Neurological status pristine. Explained to the patient. Continue monitoring. Was told to follow up with his primary care physician. Was told to come back if there is any problem. Time of 1ST Reevaluation: 08:14 Reevaluation 1ST: Unchanged Time of 2ND Reevaluation: 14:26 Reevaluation 2ND: Improved (Alert) Patient Education/Counseling: Diagnosis, Treatment, Need For Follow Up Family Education/Counseling: No Family Present SEPSIS Sepsis Screen Date sepsis recognized/suspect: Mar 17, 2025 Time Sepsis recognized/suspect: 0810 Recent Procedure: No On Antibiotic Therapy: No Respiratory Rate >20: No Heart Rate >90: No Temp<36 C (96.8 F) or >38.3 C: No SBP <90 or MAP <65 mmHG: No New Acute Mental Status Change: Yes Is the patient on CPAP, BIPAP,: No Physician Orders Acid Correction Hand (03/17/25 08:37) Sodium Chloride 0.9% (03/17/25 08:45) Vital Signs Date Time Temp Pulse Resp B/P (MAP) Pulse Ox O2 Delivery O2 Flow Rate FiO2 03/17/25 14:00 65 22 142/73 (96) 98 03/17/25 12:00 61 03/17/25 12:00 97.8 63 14 127/61 (83) 98 97.8 03/17/25 10:00 63 18 124/75 (91) 97 03/17/25 08:16 97.6 77 20 126/69 (88) 96 97.6 03/17/25 08:16 68 20 95 Nasal Cannula* 2 28 03/17/25 07:59 98.9 70 14 138/90 (106) 94 98.9 Laboratory Tests Test 03/17/25 08:43 White Blood Count 6.8 10^3/uL (4.4-10.8) Medications Medications Dose Ordered Sig/Kimber Route Start Time Stop Time Status Last Admin Dose Admin Sodium Chloride 1,000 ml @ 150 mls/hr Q6H40M ONCE IV 03/17/25 08:45 03/17/25 15:24 03/17/25 09:25 Sodium Chloride 1,000 ml @ 1,000 mls/hr Q1H ONCE IVB 03/17/25 08:45 03/17/25 09:44 DC 03/17/25 08:41 Departure 1 Departure Time of Disposition: 08:53 Impression: Primary Impression: Metabolic encephalopathy Additional Impression: Drug use Disposition: HOME / SELF CARE / HOMELESS Condition: Good e-Prescriptions Amoxicillin Trihydrate (Amoxicillin) 500 Mg Tab 1 TAB PO TID for 5 Days, #15 TAB Prov: JONAS KERR MD 03/17/25 Discharged With: Self Critical Care Note Critical Care Time?: Yes (90 min-critical care time only) Critical care comment: Monitor mental status Stability Stability form required: No Heart Score Heart Score: Heart Score Response (Comments) Value History N/A 0 EKG N/A 0 Age N/A 0 Risk Factors N/A 0 Troponin N/A 0 Total 0 I personally scribed for JONAS KERR MD ([email or web address]) on 03/17/25 at 08:48. Electronically submitted by Liang Nichols ([email or web address]). JONAS KERR MD Mar 17, 2025 08:48
[2025-03-17 09:01] LABS: Hematocrit 44.5 % (41.0-53.0); Hemoglobin 15.2 g/dL (13.5-17.5); Mean Corpuscular Hemoglobin 28.5 pg (28.0-32.0); Mean Corpuscular Volume 83.4 fL (80.0-100.0); Nucleated Red Blood Cells % 0.0 %
[2025-03-17 09:19] LABS: Chloride 106 mmol/L (98-107); Potassium 4.1 mmol/L (3.5-5.1); Sodium 142 mmol/L (136-145)
[2025-03-17 09:20] LABS: Anion Gap 9 (5-15); Calcium 9.6 mg/dL (8.7-10.4); Carbon Dioxide 27 mmol/L (20-31)
[2025-03-17 09:25] LABS: Blood Urea Nitrogen 16 mg/dL (9-23)
[2025-03-17] MEDS: SODIUM CHLORIDE 0.9% 1,000 ML IV ONE (09:25)
[2025-03-17 09:28] LABS: BUN/Creatinine Ratio 15.0 (10.0-20.0); Glucose 127 mg/dL (74-106)
[2025-03-17 12:00] VITALS: TEMP 97.8
[2025-03-17 13:37] LABS: Cannabinoid Screen, Urine Pos (NEGATIVE)
[2025-03-17 13:38] LABS: Amphetamine Screen, Urine Pos (NEGATIVE); Barbiturate Scree,Urine Neg (NEGATIVE); Benzodiazephine Screen, Urine Neg (NEGATIVE); Cocaine Screen, Urine Neg (NEGATIVE); Opiate Scree,Urine Neg (NEGATIVE); Phencyclidine Screen, Urine Neg (NEGATIVE)
[2025-03-17 14:00] VITALS: BP 142/73; PULSE 65; RESP 22; O2SAT 98
[2025-03-17] MEDS ORDERED: AMOX500T3 PO (14:25)
== END 2025-03-17 15:21 | disposition home or self-care (01) ==
LOC: ER 07:55 → EDUNIT# 07:55 → EDBD 07:55 → ER 15:21
DX: G93.41 Metabolic encephalopathy (principal); F12.90 Cannabis use, unspecified, uncomplicated; F19.90 Other psychoactive substance use, unspecified, uncomplicated; F10.90 Alcohol use, unspecified, uncomplicated; Z87.442 Personal history of urinary calculi; Y90.9 Presence of alcohol in blood, level not specified
CPT/HCPCS: 36415; 80048; 80307; 80320; 82947; 85025; 96360; 99291; 99292; J7030; 96361